=== PATIENT | male | born 1995 | race Caucasian/White ===

== ENCOUNTER 2016-10-17 17:00 | Emergency (ER) | payer MEDICAID, OTHER ==
[2016-10-17 18:03] LABS: SPECIFIC GRAVITY 1.025 (1.001-1.030); URINE BILIRUBIN NEGATIVE (NEGATIVE); URINE BLOOD NEGATIVE (NEGATIVE); URINE GLUCOSE (UA) NEGATIVE (NEGATIVE); URINE LEUKOCYTE ESTERASE NEGATIVE (NEGATIVE); URINE NITRITE NEGATIVE (NEGATIVE); URINE PROTEIN NEGATIVE (NEGATIVE); URINE UROBILINOGEN NORMAL (0-1 mg/dl)
[2016-10-17 18:05] LABS: URINE APPEARANCE CLEAR; URINE COLOR YELLOW
[2016-10-17] MEDS ORDERED: IBUPROFEN 600 MG TABLET ONE ×2 (18:45→19:30)
--- NOTE | 2016-10-17 19:20 | US ---
Name: BREANNE LARRY Exam: Scrotal ultrasound Comparison: None Clinical history: Bilateral, left greater than right pain Findings: Ultrasound scrotum was performed. Testicular size, shape, echogenicity and blood flow are symmetric and within normal limits. The right measures 3.9 x 3.0 x 2.0 centers left measures 4.1 x 2.9 x 2.4 centers. There is no suspect testicular mass or torsion. There is a 2 mm subpleural calcification on the right. Right epididymal head 1 cm in greatest dimension left 1.5 cm in greatest dimension. There is no hydrocele or varicocele. Impression: Grossly normal scrotal ultrasound Note: The above report was uploaded to [facility]'s electronic medical records system at 1916 hours.
[2016-10-17] MEDS ORDERED: HYDROCODONE/ACETAMINOPHEN 5/325MG TABLET ONE (19:30)
[2016-10-19 15:12] LABS: CHLAMYDIA BD Negative (Negative); N.GONORRHOEAE BD Negative (Negative); SOURCE Urine (())
== END 2016-10-17 19:44 | disposition home or self-care (01) ==
LOC: ED 17:00
DX: S30.22XA Contusion of scrotum and testes, initial encounter (principal); W20.8XXA Other cause of strike by thrown, projected or falling object, initial encounter; Y93.15 Activity, underwater diving and snorkeling; Y92.89 Other specified places as the place of occurrence of the external cause

== ENCOUNTER 2016-11-25 19:47 | Emergency (ER) | payer OTHER | END 2016-11-25 20:53 | disposition home or self-care (01) | LOC: ED 19:47 | DX: K08.499 Partial loss of teeth due to other specified cause, unspecified class (principal); K08.89 Other specified disorders of teeth and supporting structures ==

== ENCOUNTER 2016-12-19 17:46 | Emergency (ER) | payer OTHER ==
[2016-12-19] MEDS ORDERED: KETOROLAC TROMETHAMINE 60 MG/2 ML VIAL ONE (19:14)
[2016-12-19 19:18] LABS: SPECIFIC GRAVITY 1.025 (1.001-1.030); URINE BILIRUBIN NEGATIVE (NEGATIVE); URINE BLOOD NEGATIVE (NEGATIVE); URINE GLUCOSE (UA) NEGATIVE (NEGATIVE); URINE LEUKOCYTE ESTERASE NEGATIVE (NEGATIVE); URINE NITRITE NEGATIVE (NEGATIVE); URINE PROTEIN NEGATIVE (NEGATIVE); URINE UROBILINOGEN NORMAL (0-1 mg/dl)
[2016-12-19 19:19] LABS: URINE APPEARANCE CLEAR; URINE COLOR AMBER
== END 2016-12-19 20:02 | disposition home or self-care (01) ==
LOC: ED 17:46
DX: M54.5 Low back pain (principal); F17.210 Nicotine dependence, cigarettes, uncomplicated
CPT/HCPCS: 81003; 99283 ×2; 96372; J1885

== ENCOUNTER 2017-01-31 17:28 | Emergency (ER) | payer OTHER ==
[2017-01-31] MEDS ORDERED: ONDANSETRON 4 MG/2ML 2 ML VIAL ONE (18:56)
[2017-01-31 19:23] LABS: ALB/GLOB RATIO 1.7 (>1.0); ALBUMIN 4.3 gm/dL (3.5-5.7); BASO % 0.4 % (0.2-1.0); CALCIUM 9.4 mg/dL (8.6-10.3); EOS # 0.2 (0.0-0.5); EOS % 3.3 % (0.9-2.9); HEMATOCRIT 43.7 % (32.0-52.0); IMM NEUT% 0.1 % (0-1); LYMPH # 2.4 (1.0-4.8); LYMPH % 33.3 % (15-45); MEAN CELL VOLUME 90.1 fl (80.0-94.0); MEAN CORPUSCULAR HEMOGLOBIN 30.9 pg (27.0-31.0); MEAN CORPUSCULAR HGB CONC 34.3 g/dl (33.0-37.0); MEAN PLATELET VOLUME 10.7 fl (7.4-10.4); MONO # 0.5 (0.0-0.8); MONO % 7.4 % (4-12); NEUT % 55.5 % (43-75); PLATELET COUNT 240 K/mm3 (130-400); RED CELL DISTRIBUTION WIDTH 12.9 % (11.5-14.5)
--- NOTE | 2017-01-31 19:27 | RAD ---
ABDOMEN: 2 VIEWS, KUB: CLINICAL INDICATION: Constipation. COMPARISON:None FINDINGS: BOWEL GAS PATTERN:Normal AIR/FLUID LEVELS:None FREE AIR:None CALCULI:None OSSEOUS STRUCTURES:Within normal limits IMPRESSION: Normal study.
== END 2017-01-31 19:59 | disposition home or self-care (01) ==
LOC: ED 17:28
DX: R11.10 Vomiting, unspecified (principal); R10.9 Unspecified abdominal pain; F17.210 Nicotine dependence, cigarettes, uncomplicated
CPT/HCPCS: 83690; 85025; 80053; 74020; 99283 ×2; 96374; J2405